=== PATIENT | male | born 1940 | race Caucasian/White ===

== ENCOUNTER → 2016-09-19 | Outpatient (CLI) | payer OTHER ==
[~2016-09-19] MED LIST: ASPIRIN 32325 MG/TAB PO; ASPIRIN 81M81 MG/TA2 PO; BENICAR HCT 12.1 TA1 PO; CARDIZEM 30MG T30 MG PO; CEPHALEXIN500 M1 PO; CORDARONE200 MG/TAB PO; DAILY MULTIPLE1 TAB PO; DIABETA 2.5MG2.5 MG PO; LANOXIN 0.120.125 MG PO; LASIX 40MG TABL40 MG PO; LASIX 80MG TABL80 MG PO; LOPRESSOR 225 MG/TAB PO; PEPCID 20MG TAB20 MG PO; PLAVIX 75MG TAB75 MG PO; TYLENOL 325MG325 MG PO; VASOTEC 5MG5 MG/TAB PO; ZYLOPRIM 100MG100 MG PO
[2016-09-19 16:53] LABS: HEMATOCRIT 35.8 % (42.0-52.0); HEMOGLOBIN 10.5 g/dl (13.5-18.0); MEAN CELL VOLUME 91 fl (80.0-100.0); MEAN CORPUSCULAR HEMOGLOBIN 27 pg (27.0-31.0); MEAN CORPUSCULAR HGB CONC 29 g/dl (33.0-37.0); MEAN PLATELET VOLUME 11.5 fl (7.4-10.4); PLATELET COUNT 158 K/mm3 (130-400); RED BLOOD COUNT 3.94 M/mm3 (4.20-5.60); REDCELL DISTRIBUTION WIDTH-CV 18.3 % (11.5-14.5); WHITE BLOOD COUNT 8.3 K/mm3 (4.8-10.8)
[2016-09-19 17:01] LABS: CALCIUM 8.8 mg/dL (8.4-10.2); CREATININE, serum 2.11 mg/dL (0.66-1.25); POTASSIUM 4.7 mmol/L (3.4-5.0)
== END ==
LOC: COL.LAB 15:46
PROVIDERS: Internal Medicine Interventional Cardiology
DX: I50.22 Chronic systolic (congestive) heart failure (principal)

== ENCOUNTER 2018-01-26 10:26 | Inpatient (IN) | payer MEDICARE ==
[~2018-01-26] VITALS: Ht 175.3 cm; Wt 84.1 kg
[~2018-01-26 10:26] MED LIST changes: +ASPIRIN E.C. 8181 MG PO; +DEMADEX 20MG20 M1 PO; +ELIQUIS 5MG PO; +PRINIVIL2.5 MG PO; +TOPROL XL100 MG PO; +ZESTRIL 5MG5 MG PO
[2018-01-26 10:43] VITALS: BP 125/75; PULSE 113; TEMP 98
[2018-01-26] MEDS ORDERED: TAPAZOLE10 MG PO (11:14)
[2018-01-26 11:15] LABS: HEMATOCRIT 41.1 % (42.0-52.0); HEMOGLOBIN 12.7 g/dl (13.5-18.0); MEAN CELL VOLUME 94 fl (80.0-100.0); MEAN CORPUSCULAR HEMOGLOBIN 29 pg (27.0-31.0); MEAN CORPUSCULAR HGB CONC 31 g/dl (33.0-37.0); MEAN PLATELET VOLUME 11.1 fl (7.4-10.4); PLATELET COUNT 152 K/mm3 (130-400); RED BLOOD COUNT 4.39 M/mm3 (4.20-5.60); REDCELL DISTRIBUTION WIDTH-CV 17.3 % (11.5-14.5)
[2018-01-26 11:27] LABS: CREATININE, serum 3.35 mg/dL (0.66-1.25); POTASSIUM 4.3 mmol/L (3.4-5.0)
[2018-01-26 12:24] VITALS: BP 117/68; PULSE 96; TEMP 97.2
[2018-01-26 15:49] LABS: BASO % 0.5 % (0.0-2.0); EOS # 0.3 (0.0-0.7); EOS % 3.5 % (0-4.0); GRAN # 6.3 (1.4-6.5); GRAN % 76.9 % (42.2-75.2); HEMATOCRIT 37.8 % (42.0-52.0); HEMOGLOBIN 11.7 g/dl (13.5-18.0); LYMPH # 0.9 (1.2-3.4); LYMPH % 11.1 % (20.0-51.0); MEAN CELL VOLUME 93 fl (80.0-100.0); MEAN CORPUSCULAR HEMOGLOBIN 29 pg (27.0-31.0); MEAN CORPUSCULAR HGB CONC 31 g/dl (33.0-37.0); MEAN PLATELET VOLUME 11.1 fl (7.4-10.4); MONO # 0.6 (0.1-0.6); MONO % 7.8 % (1.7-9.3); PLATELET COUNT 145 K/mm3 (130-400); RED BLOOD COUNT 4.08 M/mm3 (4.20-5.60); REDCELL DISTRIBUTION WIDTH-CV 17.2 % (11.5-14.5)
[2018-01-26 15:58] VITALS: BP 120/75; PULSE 82; TEMP 97.7
[2018-01-26 16:02] LABS: BILIRUBIN,TOTAL 1.1 mg/dL (0.0-1.0); CALCIUM 8.7 mg/dL (8.4-10.2); CREATININE, serum 3.29 mg/dL (0.66-1.25); MAGNESIUM 2.6 mg/dL (1.6-2.3); POTASSIUM 4.2 mmol/L (3.4-5.0); TOTAL PROTEIN 7.2 gm/dL (6.4-8.2)
[2018-01-26 16:20] LABS: THYROXINE (T4)-TOTAL 2.7 ug/dL (5.5-11.0)
[2018-01-26 16:32] LABS: THYROID STIMULATING HORMONE 4.86 uIU/mL (0.465-4.680)
[2018-01-26 20:42] VITALS: BP 117/81; PULSE 100
[2018-01-27 00:01] VITALS: BP 95/58; PULSE 107; TEMP 97.6
[2018-01-27 04:05] VITALS: BP 97/66; PULSE 93; TEMP 97.7
[2018-01-27 07:06] LABS: INR 1.2 (0.8-3.0); PROTHROMBIN TIME 13.9 SECONDS (9.7-12.8)
[2018-01-27 07:07] LABS: CREATININE, serum 3.16 mg/dL (0.66-1.25)
[2018-01-27 07:33] LABS: THYROID STIMULATING HORMONE 5.35 uIU/mL (0.465-4.680)
[2018-01-27 08:54] VITALS: BP 127/64; PULSE 93; TEMP 98
[2018-01-27] MEDS ORDERED: ELIQUIS 2.5 PO (12:52)
[2018-01-27] MEDS ORDERED: CORDARONE200 MG/TAB PO (12:53)
[2018-01-27 12:55] VITALS: BP 110/63; PULSE 102; TEMP 97
== END 2018-01-27 14:20 | disposition home or self-care (01) | DRG 308 ==
LOC: MEDICAL 10:26
PROVIDERS: Internal Medicine Cardiovascular Disease; Internal Medicine Interventional Cardiology
DX: I48.1 Persistent atrial fibrillation (principal); I50.23 Acute on chronic systolic (congestive) heart failure; I25.10 Atherosclerotic heart disease of native coronary artery without angina pectoris; I27.20 Pulmonary hypertension, unspecified; E03.9 Hypothyroidism, unspecified; E11.22 Type 2 diabetes mellitus with diabetic chronic kidney disease; N18.9 Chronic kidney disease, unspecified; E11.65 Type 2 diabetes mellitus with hyperglycemia; Z91.14 Patient's other noncompliance with medication regimen; Z95.810 Presence of automatic (implantable) cardiac defibrillator; Z87.891 Personal history of nicotine dependence
CPT/HCPCS: 99222; 99239; J1815; J7030

== ENCOUNTER 2018-02-13 09:53 | Day surgery (SDC) | payer MEDICARE ==
[~2018-02-13] VITALS: Ht 175.4 cm; Wt 83.8 kg
[2018-02-13] VITALS (13 sets, daily range): BP systolic 120–147; BP diastolic 76–99; PULSE 90–110; TEMP 98.3
[~2018-02-13 09:53] MED LIST changes: +ELIQUIS 2.5 PO; +TAPAZOLE10 MG PO
[2018-02-13 11:53] LABS: POTASSIUM 4.2 mmol/L (3.4-5.0)
[2018-02-13 11:57] LABS: INR 1.2 (0.8-3.0)
[2018-02-13 12:28] LABS: THYROID STIMULATING HORMONE 1.98 uIU/mL (0.465-4.680)
== END 2018-02-13 18:30 | disposition home or self-care (01) ==
LOC: COL.CAR 09:53
PROVIDERS: Internal Medicine Interventional Cardiology
DX: I48.1 Persistent atrial fibrillation (principal); I35.0 Nonrheumatic aortic (valve) stenosis; I13.0 Hypertensive heart and chronic kidney disease with heart failure and stage 1 through stage 4 chronic kidney disease, or unspecified chronic kidney disease; E11.22 Type 2 diabetes mellitus with diabetic chronic kidney disease; N18.9 Chronic kidney disease, unspecified; I25.119 Atherosclerotic heart disease of native coronary artery with unspecified angina pectoris; I50.22 Chronic systolic (congestive) heart failure; I27.20 Pulmonary hypertension, unspecified; Z95.810 Presence of automatic (implantable) cardiac defibrillator; Z79.82 Long term (current) use of aspirin; Z79.02 Long term (current) use of antithrombotics/antiplatelets; Z87.891 Personal history of nicotine dependence; Z82.49 Family history of ischemic heart disease and other diseases of the circulatory system
CPT/HCPCS: G9654; J2704; J7030

== ENCOUNTER 2018-03-11 09:00 | Outpatient (RCR) | payer MEDICARE ==
[2018-03-03 09:20] VITALS: BP 108/78; PULSE 110; TEMP 97.7
[2018-03-03 09:32] LABS: HEMATOCRIT 35.7 % (42.0-52.0); MEAN CELL VOLUME 92 fl (80.0-100.0); MEAN CORPUSCULAR HEMOGLOBIN 28 pg (27.0-31.0); MEAN CORPUSCULAR HGB CONC 31 g/dl (33.0-37.0); PLATELET COUNT 178 K/mm3 (130-400); RED BLOOD COUNT 3.87 M/mm3 (4.20-5.60); REDCELL DISTRIBUTION WIDTH-CV 18.5 % (11.5-14.5)
[2018-03-03 09:44] LABS: ANION GAP 15 mmol/L (7-16); BLOOD UREA NITROGEN 61 mg/dL (9-20); CALCIUM 8.5 mg/dL (8.4-10.2); CARBON DIOXIDE 25 mmol/L (22-30); CHLORIDE 98 mmol/L (98-107); CREATININE, serum 3.41 mg/dL (0.66-1.25); GLUCOSE 187 mg/dL (74-106); POTASSIUM 3.8 mmol/L (3.4-5.0); SODIUM 138 mmol/L (137-145)
[2018-03-03 10:07] LABS: DIGOXIN < 0.4 ng/mL (0.8-2.0)
[2018-03-03 14:01] VITALS: BP 116/76; PULSE 112
[2018-03-04 09:07] VITALS: BP 119/74; PULSE 114; TEMP 98.4
[2018-03-05 09:42] VITALS: BP 118/72; PULSE 114; TEMP 97.6
[2018-03-05 10:10] LABS: CALCIUM 8.9 mg/dL (8.4-10.2); CREATININE, serum 3.3 mg/dL (0.66-1.25); POTASSIUM 4.4 mmol/L (3.4-5.0)
[2018-03-06 09:04] LABS: CALCIUM 9.2 mg/dL (8.4-10.2); CREATININE, serum 3.18 mg/dL (0.66-1.25); POTASSIUM 4.2 mmol/L (3.4-5.0)
[2018-03-06 09:50] VITALS: BP 111/69; PULSE 113; TEMP 97.1
[2018-03-06 13:56] VITALS: BP 122/75; PULSE 113; TEMP 97.3
[2018-03-09 09:02] VITALS: BP 101/66; PULSE 114; TEMP 97.5
[2018-03-09 09:04] LABS: CREATININE, serum 3.48 mg/dL (0.66-1.25); MAGNESIUM 2.6 mg/dL (1.6-2.3); POTASSIUM 4.2 mmol/L (3.4-5.0)
[2018-03-09 13:37] VITALS: BP 102/62; PULSE 114; TEMP 97.1
[2018-03-10 08:51] VITALS: BP 152/82; PULSE 116; TEMP 97.8
[~2018-03-11] VITALS: Ht 175.3 cm; Wt 86.0 kg
[2018-03-11 08:52] VITALS: BP 152/78; PULSE 66; TEMP 97.9
[2018-03-11 10:57] LABS: CALCIUM 8.9 mg/dL (8.4-10.2); CREATININE, serum 3.53 mg/dL (0.66-1.25); MAGNESIUM 2.6 mg/dL (1.6-2.3); POTASSIUM 4.2 mmol/L (3.4-5.0)
== END 2018-03-11 13:21 | disposition home or self-care (01) ==
LOC: EUO 09:00
PROVIDERS: Internal Medicine Interventional Cardiology
DX: I50.22 Chronic systolic (congestive) heart failure (principal); I48.1 Persistent atrial fibrillation; Z79.899 Other long term (current) drug therapy

== ENCOUNTER 2018-04-06 14:45 | Inpatient (IN) | payer MEDICARE ==
[~2018-04-06] VITALS: Ht 175.3 cm; Wt 81.1 kg
[2018-04-06 15:20] LABS: BASO # 0.1 (0.0-0.2); BASO % 0.5 % (0.0-2.0); EOS # 0.2 (0.0-0.7); GRAN # 8.4 (1.4-6.5); GRAN % 83.4 % (42.2-75.2); HEMATOCRIT 40.2 % (42.0-52.0); HEMOGLOBIN 12.3 g/dl (13.5-18.0); LYMPH # 0.5 (1.2-3.4); LYMPH % 5.1 % (20.0-51.0); MEAN CELL VOLUME 92 fl (80.0-100.0); MEAN CORPUSCULAR HEMOGLOBIN 28 pg (27.0-31.0); MEAN CORPUSCULAR HGB CONC 31 g/dl (33.0-37.0); MEAN PLATELET VOLUME 11.4 fl (7.4-10.4); MONO # 0.9 (0.1-0.6); MONO % 8.4 % (1.7-9.3); PLATELET COUNT 123 K/mm3 (130-400); RED BLOOD COUNT 4.39 M/mm3 (4.20-5.60); REDCELL DISTRIBUTION WIDTH-CV 17.8 % (11.5-14.5)
[2018-04-06 15:36] LABS: ALBUMIN 3.5 gm/dL (3.5-5.0); C-REACTIVE PROTEIN 3.1 mg/dL (0.0-0.9); CALCIUM 8.1 mg/dL (8.4-10.2); CREATININE, serum 2.05 mg/dL (0.66-1.25); POTASSIUM 4.4 mmol/L (3.4-5.0); TOTAL PROTEIN 6.8 gm/dL (6.4-8.2)
[2018-04-06 15:53] LABS: TROPONIN-I 0.061 ng/mL (0.000-0.034)
[2018-04-06] MEDS ORDERED: ASPIRIN 81M81 MG/TA2 PO (16:16)
[2018-04-06] MEDS ORDERED: DIGITEK0.25 MG PO (16:56)
[2018-04-06 17:48] VITALS: BP 168/61; PULSE 64; TEMP 97.9
[2018-04-06 18:13] LABS: COLLECTION METHOD CLEAN CATCH
[2018-04-06 18:34] LABS: MUCOUS Present /lpf; PH 5 (5-8); SQUAMOUS EPITHELIAL None Seen /hpf; URINE APPEARANCE Hazy; URINE BACTERIA None Seen /hpf; URINE BILIRUBIN Negative (NEGATIVE); URINE BLOOD Negative (NEGATIVE); URINE COLOR Yellow; URINE GLUCOSE Negative (NEGATIVE); URINE KETONE Negative (NEGATIVE); URINE LEUKOCYTE ESTERASE 2+ (NEGATIVE); URINE NITRATE Negative (NEGATIVE); URINE PROTEIN(semi-quant) 2+ (NEGATIVE); URINE UROBILINOGEN >=4.0 mg/dL (NEGATIVE)
[2018-04-06 19:52] VITALS: BP 178/66; PULSE 75; TEMP 98.2
[2018-04-06 21:42] VITALS: BP 165/56; PULSE 69; TEMP 97.8
[2018-04-06 23:21] VITALS: BP 154/76; PULSE 56; TEMP 98.4
[2018-04-07] VITALS (10 sets, daily range): BP systolic 135–161; BP diastolic 42–72; PULSE 58–85; TEMP 96.7–98.6
[2018-04-07 08:01] LABS: BASO # 0.1 (0.0-0.2); BASO % 0.7 % (0.0-2.0); EOS # 0.2 (0.0-0.7); EOS % 2.3 % (0-4.0); GRAN # 7.2 (1.4-6.5); GRAN % 79.4 % (42.2-75.2); HEMATOCRIT 42.6 % (42.0-52.0); HEMOGLOBIN 12.9 g/dl (13.5-18.0); LYMPH # 0.7 (1.2-3.4); LYMPH % 8.1 % (20.0-51.0); MEAN CELL VOLUME 92 fl (80.0-100.0); MEAN CORPUSCULAR HEMOGLOBIN 28 pg (27.0-31.0); MEAN CORPUSCULAR HGB CONC 30 g/dl (33.0-37.0); MEAN PLATELET VOLUME 10.9 fl (7.4-10.4); MONO # 0.8 (0.1-0.6); MONO % 9.1 % (1.7-9.3); PLATELET COUNT 130 K/mm3 (130-400); RED BLOOD COUNT 4.62 M/mm3 (4.20-5.60)
[2018-04-07 08:15] LABS: CALCIUM 8.4 mg/dL (8.4-10.2); CREATININE, serum 2.26 mg/dL (0.66-1.25); POTASSIUM 4.2 mmol/L (3.4-5.0)
[2018-04-07 08:44] LABS: TROPONIN-I 0.077 ng/mL (0.000-0.034)
[2018-04-08] VITALS (9 sets, daily range): BP systolic 134–159; BP diastolic 44–61; PULSE 60–63; TEMP 97.3–98.5
[2018-04-08 06:42] LABS: BASO % 0.4 % (0.0-2.0); EOS # 0.3 (0.0-0.7); EOS % 2.7 % (0-4.0); GRAN # 7.3 (1.4-6.5); GRAN % 79.9 % (42.2-75.2); HEMATOCRIT 39.8 % (42.0-52.0); HEMOGLOBIN 12.3 g/dl (13.5-18.0); LYMPH # 0.7 (1.2-3.4); LYMPH % 7.8 % (20.0-51.0); MEAN CELL VOLUME 90 fl (80.0-100.0); MEAN CORPUSCULAR HEMOGLOBIN 28 pg (27.0-31.0); MEAN CORPUSCULAR HGB CONC 31 g/dl (33.0-37.0); MEAN PLATELET VOLUME 11.8 fl (7.4-10.4); MONO # 0.8 (0.1-0.6); MONO % 8.9 % (1.7-9.3); PLATELET COUNT 112 K/mm3 (130-400); RED BLOOD COUNT 4.42 M/mm3 (4.20-5.60); REDCELL DISTRIBUTION WIDTH-CV 17.6 % (11.5-14.5)
[2018-04-08 06:58] LABS: CALCIUM 7.9 mg/dL (8.4-10.2); CREATININE, serum 2.27 mg/dL (0.66-1.25); POTASSIUM 3.8 mmol/L (3.4-5.0)
[2018-04-09] VITALS (9 sets, daily range): BP systolic 124–149; BP diastolic 45–55; PULSE 58–63; TEMP 97.2–98.7
[2018-04-09 06:37] LABS: CALCIUM 7.4 mg/dL (8.4-10.2); CREATININE, serum 2.47 mg/dL (0.66-1.25); DIGOXIN 2.8 ng/mL (0.8-2.0); POTASSIUM 3.8 mmol/L (3.4-5.0)
[2018-04-10] VITALS (8 sets, daily range): BP systolic 108–147; BP diastolic 39–56; PULSE 59–66; TEMP 97.3–98.9
[2018-04-10 09:09] LABS: HEMATOCRIT 43.3 % (42.0-52.0); HEMOGLOBIN 13.3 g/dl (13.5-18.0); MEAN CELL VOLUME 92 fl (80.0-100.0); MEAN CORPUSCULAR HEMOGLOBIN 28 pg (27.0-31.0); MEAN CORPUSCULAR HGB CONC 31 g/dl (33.0-37.0); MEAN PLATELET VOLUME 11.5 fl (7.4-10.4); PLATELET COUNT 135 K/mm3 (130-400); RED BLOOD COUNT 4.73 M/mm3 (4.20-5.60); REDCELL DISTRIBUTION WIDTH-CV 17.8 % (11.5-14.5)
[2018-04-10 09:25] LABS: CALCIUM 7.6 mg/dL (8.4-10.2); CREATININE, serum 2.79 mg/dL (0.66-1.25); MAGNESIUM 1.9 mg/dL (1.6-2.3); PHOSPHOROUS 4.1 mg/dL (2.5-4.5)
[2018-04-11 03:46] VITALS: BP 108/49; PULSE 69; TEMP 98.5
[2018-04-11 07:10] LABS: BASO # 0.1 (0.0-0.2); BASO % 0.7 % (0.0-2.0); EOS # 0.3 (0.0-0.7); EOS % 4.1 % (0-4.0); GRAN # 5.1 (1.4-6.5); HEMATOCRIT 37.2 % (42.0-52.0); LYMPH # 0.8 (1.2-3.4); LYMPH % 11.2 % (20.0-51.0); MEAN CELL VOLUME 92 fl (80.0-100.0); MEAN CORPUSCULAR HEMOGLOBIN 28 pg (27.0-31.0); MEAN CORPUSCULAR HGB CONC 30 g/dl (33.0-37.0); MEAN PLATELET VOLUME 10.7 fl (7.4-10.4); MONO # 0.9 (0.1-0.6); MONO % 12.7 % (1.7-9.3); PLATELET COUNT 118 K/mm3 (130-400); RED BLOOD COUNT 4.06 M/mm3 (4.20-5.60); REDCELL DISTRIBUTION WIDTH-CV 17.8 % (11.5-14.5)
[2018-04-11 07:22] LABS: CALCIUM 7.4 mg/dL (8.4-10.2); CREATININE, serum 2.68 mg/dL (0.66-1.25); POTASSIUM 3.9 mmol/L (3.4-5.0)
[2018-04-11 07:36] LABS: HEMOGLOBIN 11.3 g/dl (13.5-18.0)
[2018-04-11 07:47] VITALS: BP 132/47; PULSE 61; TEMP 97.5
[2018-04-11 11:47] VITALS: BP 124/46; PULSE 59; TEMP 97.6
[2018-04-11 16:05] VITALS: BP 128/45; PULSE 59; TEMP 97.6
[2018-04-11 19:34] VITALS: BP 128/41; PULSE 62; TEMP 98.2
[2018-04-11 23:17] VITALS: BP 156/49; PULSE 59; TEMP 98.5
[2018-04-12 03:26] VITALS: BP 159/55; PULSE 61; TEMP 97.8
[2018-04-12 08:16] VITALS: BP 138/62; PULSE 60; TEMP 97.6
[2018-04-12 09:43] LABS: BASO # 0.1 (0.0-0.2); EOS # 0.3 (0.0-0.7); EOS % 4.1 % (0-4.0); GRAN # 5.1 (1.4-6.5); GRAN % 72.4 % (42.2-75.2); HEMOGLOBIN 12.5 g/dl (13.5-18.0); LYMPH # 0.8 (1.2-3.4); LYMPH % 10.9 % (20.0-51.0); MEAN CELL VOLUME 93 fl (80.0-100.0); MEAN CORPUSCULAR HEMOGLOBIN 28 pg (27.0-31.0); MEAN CORPUSCULAR HGB CONC 31 g/dl (33.0-37.0); MEAN PLATELET VOLUME 10.7 fl (7.4-10.4); MONO # 0.8 (0.1-0.6); MONO % 11.3 % (1.7-9.3); PLATELET COUNT 140 K/mm3 (130-400); RED BLOOD COUNT 4.41 M/mm3 (4.20-5.60); REDCELL DISTRIBUTION WIDTH-CV 17.6 % (11.5-14.5)
[2018-04-12 09:51] LABS: CALCIUM 7.9 mg/dL (8.4-10.2); CREATININE, serum 2.55 mg/dL (0.66-1.25)
[2018-04-12 11:19] VITALS: BP 129/42; PULSE 61; TEMP 98
[2018-04-12 15:06] VITALS: BP 138/45; PULSE 60; TEMP 98.5
[2018-04-12 20:30] VITALS: BP 134/46; PULSE 65; TEMP 98.7
[2018-04-13 04:00] VITALS: BP 107/60; PULSE 70; TEMP 98.8
[2018-04-13 06:29] LABS: CREATININE, serum 2.6 mg/dL (0.66-1.25); POTASSIUM 4.2 mmol/L (3.4-5.0)
[2018-04-13] MEDS ORDERED: ISORDIL 10MG10 MG PO (07:54)
[2018-04-13] MEDS ORDERED: COREG 3.123.125 MG/T PO (07:55)
[2018-04-13 08:42] VITALS: BP 147/47; PULSE 62; TEMP 97.4
[2018-04-13 12:03] VITALS: BP 146/54; PULSE 60; TEMP 97.5
[2018-04-13 16:39] VITALS: BP 152/53; PULSE 61; TEMP 98
[2018-04-13 19:46] VITALS: BP 121/54; PULSE 59; TEMP 98.6
[2018-04-13 23:25] VITALS: BP 134/52; PULSE 60; TEMP 97.8
[2018-04-14 03:41] VITALS: BP 123/40; PULSE 58; TEMP 97.5
[2018-04-14 03:44] VITALS: BP 137/57
[2018-04-14 06:43] LABS: ALBUMIN 3.3 gm/dL (3.5-5.0); BILIRUBIN,TOTAL 0.7 mg/dL (0.0-1.0); CALCIUM 8.2 mg/dL (8.4-10.2); CREATININE, serum 2.6 mg/dL (0.66-1.25); MAGNESIUM 1.9 mg/dL (1.6-2.3); POTASSIUM 4.5 mmol/L (3.4-5.0); TOTAL PROTEIN 6.4 gm/dL (6.4-8.2)
[2018-04-14 07:52] VITALS: BP 117/47; PULSE 64; TEMP 97.9
[2018-04-14] MEDS ORDERED: APRESOLINE 25MG25 MG PO (08:39)
[2018-04-14] MEDS ORDERED: ISORDIL 20MG20 M1 PO (08:40)
[2018-04-14 10:55] VITALS: BP 100/40; PULSE 59; TEMP 97.3
[2018-04-14 15:30] VITALS: BP 128/47; PULSE 59; TEMP 98.2
[2018-04-14 19:33] VITALS: BP 96/40; PULSE 64
[2018-04-15 01:31] VITALS: BP 130/47; PULSE 62; TEMP 97.6
[2018-04-15 06:18] LABS: BASO # 0.1 (0.0-0.2); BASO % 0.8 % (0.0-2.0); EOS # 0.3 (0.0-0.7); EOS % 4.7 % (0-4.0); GRAN # 4.4 (1.4-6.5); GRAN % 67.7 % (42.2-75.2); HEMATOCRIT 37.8 % (42.0-52.0); HEMOGLOBIN 11.4 g/dl (13.5-18.0); LYMPH # 0.9 (1.2-3.4); LYMPH % 13.4 % (20.0-51.0); MEAN CELL VOLUME 91 fl (80.0-100.0); MEAN CORPUSCULAR HEMOGLOBIN 28 pg (27.0-31.0); MEAN CORPUSCULAR HGB CONC 30 g/dl (33.0-37.0); MEAN PLATELET VOLUME 11.5 fl (7.4-10.4); MONO # 0.8 (0.1-0.6); MONO % 12.9 % (1.7-9.3); PLATELET COUNT 146 K/mm3 (130-400); RED BLOOD COUNT 4.14 M/mm3 (4.20-5.60); REDCELL DISTRIBUTION WIDTH-CV 17.5 % (11.5-14.5)
[2018-04-15 06:31] LABS: CALCIUM 8.3 mg/dL (8.4-10.2); CREATININE, serum 2.81 mg/dL (0.66-1.25); POTASSIUM 4.6 mmol/L (3.4-5.0)
[2018-04-15 07:28] VITALS: BP 109/41; PULSE 63; TEMP 97.9
[2018-04-15 11:02] VITALS: BP 117/44; PULSE 59; TEMP 97.7
[2018-04-15 16:54] VITALS: BP 143/49; PULSE 62; TEMP 98.2
== END 2018-04-15 19:25 | disposition home or self-care (01) | DRG 91 ==
LOC: COL.ER 14:45 → MEDICAL 16:19
PROVIDERS: Emergency Medicine; Internal Medicine; Internal Medicine Cardiovascular Disease; Nurse Practitioner Family; Physician Assistant
DX: G92 Toxic encephalopathy (principal); I50.33 Acute on chronic diastolic (congestive) heart failure; I13.0 Hypertensive heart and chronic kidney disease with heart failure and stage 1 through stage 4 chronic kidney disease, or unspecified chronic kidney disease; N17.9 Acute kidney failure, unspecified; N18.4 Chronic kidney disease, stage 4 (severe); E87.3 Alkalosis; T46.0X5A Adverse effect of cardiac-stimulant glycosides and drugs of similar action, initial encounter; E11.22 Type 2 diabetes mellitus with diabetic chronic kidney disease; Z95.810 Presence of automatic (implantable) cardiac defibrillator; Z87.891 Personal history of nicotine dependence; I48.0 Paroxysmal atrial fibrillation; I25.5 Ischemic cardiomyopathy; I25.10 Atherosclerotic heart disease of native coronary artery without angina pectoris; E11.65 Type 2 diabetes mellitus with hyperglycemia
CPT/HCPCS: 99223-AI; 99231-AI; 99232-AI; 99233-AI; 99239; J1815